=== PATIENT | male | born 1955 | race African-American/Black ===

== ENCOUNTER 2021-03-13 00:45 | Emergency (ER) | payer OTHER ==
[~2021-03-13] VITALS: Ht 167.6 cm; Wt 81.7 kg
[2021-03-13] MEDS ORDERED: HYDROCOD/ACETAM 5-32 (03:05)
== END 2021-03-13 03:06 | disposition home or self-care (01) ==
LOC: ER 00:45
DX: Z00.8 Encounter for other general examination (principal); I25.2 Old myocardial infarction; F17.200 Nicotine dependence, unspecified, uncomplicated
CPT/HCPCS: 99282; A9270